=== PATIENT | female | born 1995 | race Asian ===

== ENCOUNTER 2017-03-23 16:17 | Emergency (ER) | payer OTHER ==
[2017-03-23 16:23] VITALS: TEMP 98; BMI 18.1
[2017-03-23] MEDS ORDERED: SODIUM CHLORIDE 1,000 ML IV STA (18:48)
[2017-03-23] MEDS ORDERED: ONDANSETRON 4 MG/2 ML VIAL IVPUSH ONE (18:49)
[2017-03-23] MEDS ORDERED: ONDANSETRON 4 MG/2 ML VIAL ONE (19:14)
[2017-03-23 19:56] LABS: ALBUMIN 3.7 g/dl (3.4-5.0); ALK PHOS 60 U/L (45-117); ANION GAP 8 (8-16); CALCIUM 8.9 mg/dL (8.5-10.1); CO2 24 mmol/L (21-32); CREATININE 0.4 mg/dL (0.55-1.02); GLUCOSE,RANDOM 103 mg/dL (74-106); SGOT/AST 19 U/L (15-37); SGPT/ALT 17 U/L (12-78); TOT PROT 7.2 g/dl (6.4-8.2)
[2017-03-23 20:04] LABS: BILIRUBIN,TOTAL < 0.1 mg/dL (0.2-1.0)
[2017-03-23 20:13] LABS: BASOPHIL 0.3 % (0-2.0); EOSINOPHIL 1.9 % (0-4.5); MCH 28.1 pg (25.7-33.7); MCHC 33.4 g/dl (32.0-36.0); MEAN CELL VOLUME 84.1 fl (80-96); MEAN PLT VOLUME 11.4 fl (7.5-11.1); NEUTROPHILS 72.4 % (42.8-82.8); PLATELET COUNT 222 K/MM3 (134-434); RDW 12.9 % (11.6-15.6); WHITE BLOOD COUNT 11.2 K/mm3 (4.0-10.0)
--- NOTE | 2017-03-23 20:25 | PDOC ---
History of Present Illness <Nemo Lenz - Last Filed: 03/23/17 20:23> - History of Present Illness Initial Comments: 03/23/17 20:55 Patient is a 21 year old female (11 weeks) with no significant medical hx who has been sent to the ED from gynecologists office for hyperemesis. Today the patient saw her HOG TENDER for hyperemesis that shes been having throughout her , and she was sent to the ED with a prescription for IV fluids. Denies any fevers, chills, vaginal bleeding, cramping, or vaginal discharge. HOG TENDER: Karen Méndez MD Surgical Hx: Right breast biopsy (benign) ; LNMP: 01/06/2017 Allergies: NKDA <Berkley Bishop - Last Filed: 03/23/17 20:57> - General Chief Complaint: Pain, Acute Stated Complaint: DEHYDRATION/11 WKS Time Seen by Provider: 03/23/17 18:47 Past History - Past Medical History Other medical history: PATIENT DENIES MEDICAL HX - Reproductive History Is Patient Now?: Yes - Psycho/Social/Smoking Cessation Hx Suicidal Ideation: No Smoking History: Never smoked Hx Alcohol Use: No Drug/Substance Use Hx: No <Nemo Lenz - Last Filed: 03/23/17 20:23> <Berkley Bishop - Last Filed: 03/23/17 20:57> - Past Medical History Allergies/Adverse Reactions: Allergies Allergy/AdvReac Type Severity Reaction Status Date / Time No Known Allergies Allergy Verified 03/23/17 16:23 Home Medications: Ambulatory Orders Cmb#95/Iron/FA/Dha [ + Dha Combo Pack] 1 each PO DAILY Review of Systems - Review of Systems Comments:: 03/23/17 20:55 CONSTITUTIONAL: Absent: fever, chills, diaphoresis, generalized weakness, malaise, loss of appetite HEENT: Absent: rhinorrhea, nasal congestion, throat pain, throat swelling, difficulty swallowing, mouth swelling, ear pain, eye pain, visual changes CARDIOVASCULAR: Absent: chest pain, syncope, palpitations, irregular heart rate, lightheadedness , peripheral edema RESPIRATORY: Absent: cough, shortness of breath, dyspnea with exertion, orthopnea, wheezing, stridor, hemoptysis GASTROINTESTINAL: Present: nausea, vomiting Absent: abdominal pain, abdominal distension, diarrhea, constipation, melena, hematochezia GENITOURINARY: Absent: dysuria, frequency, urgency, hesitancy, hematuria, flank pain, genital pain MUSCULOSKELETAL: Absent: myalgia, arthralgia, joint swelling SKIN: Absent: rash, itching, pallor HEMATOLOGIC/IMMUNOLOGIC: Absent: easy bleeding, easy bruising, lymphadenopathy, frequent infections ENDOCRINE: Absent: unexplained weight gain, unexplained weight loss, heat intolerance, cold intolerance NEUROLOGIC: Absent: headache, focal weakness or paresthesia, dizziness, unsteady gait, seizure, mental status changes, bladder or bowel incontinence. PSYCHIATRIC: Absent: anxiety, depression, suicidal or homicidal ideation, hallucinations <Berkley Bishop - Last Filed: 03/23/17 20:57> *Physical Exam - Vital Signs Last Vital Signs Temp Pulse Resp BP Pulse Ox 98.0 F 94 H 16 102/65 100 03/23/17 16:19 03/23/17 16:19 03/23/17 16:19 03/23/17 16:19 03/23/17 16:19 <Nemo Lenz - Last Filed: 03/23/17 20:23> - Vital Signs Last Vital Signs Temp Pulse Resp BP Pulse Ox 98.0 F 75 18 134/64 98 03/23/17 16:19 03/23/17 20:26 03/23/17 20:26 03/23/17 20:26 03/23/17 20:26 - Physical Exam Comments: 03/23/17 20:56 GENERAL: Well developed, well nourished. Awake and alert. No acute distress. HEENT: Normocephalic, atraumatic. PERRLA, EOMI. No conjunctival pallor. Sclera are non- icteric. Moist mucous membranes. Oropharynx is clear. NECK: Supple. Full ROM. No JVD. Carotid pulses 2+ and symmetric, without bruits. No thyromegaly. No lymphadenopathy. CARDIOVASCULAR: Regular rate and rhythm. No murmurs, rubs, or gallops. Distal pulses are 2+ and symmetric. PULMONARY: No evidence of respiratory distress. Lungs clear to auscultation bilaterally. No wheezing, rales or rhonchi. ABDOMINAL: Soft. Non-tender. Non-distended. No rebound or guarding. No organomegaly. Normoactive bowel sounds. MUSCULOSKELETAL: Normal range of motion at all joints. No bony deformities or tenderness. No CVA tenderness. EXTREMITIES: No cyanosis. No clubbing. No edema. No calf tenderness. SKIN: Warm and dry. Normal capillary refill. No rashes. No jaundice. NEUROLOGICAL: Alert, awake, appropriate. Cranial nerves 2-12 intact. Normal speech. Gait is normal without ataxia. PSYCHIATRIC: Cooperative. Good eye contact. Appropriate mood and affect. <Berkley Bishop - Last Filed: 03/23/17 20:57> ED Treatment Course - LABORATORY CBC & Chemistry Diagram: 03/23/17 19:00 03/23/17 19:00 - ADDITIONAL ORDERS Additional order review: Laboratory Results 03/23/17 19:00 Sodium 140 Potassium 3.9 Chloride 108 H Carbon Dioxide 24 Anion Gap 8 BUN 12 Creatinine 0.4 L Creat Clearance w eGFR > 60 Random Glucose 103 Calcium 8.9 Total Bilirubin < 0.1 L AST 19 ALT 17 Alkaline Phosphatase 60 Total Protein 7.2 Albumin 3.7 03/23/17 19:00 RBC 4.07 MCV 84.1 MCHC 33.4 RDW 12.9 MPV 11.4 H Neutrophils % 72.4 Lymphocytes % 19.6 Monocytes % 5.8 Eosinophils % 1.9 Basophils % 0.3 - Medications Given in the ED: ED Medications Discontinued Medications Generic Name Dose Route Start Last Admin Trade Name Freq PRN Reason Stop Dose Admin Sodium Chloride 1,000 mls @ 1,000 mls/hr 03/23/17 18:48 03/23/17 19:19 Normal Saline - IV 03/23/17 19:47 1,000 mls/hr ASDIR STA Administration Ondansetron HCl 4 mg 03/23/17 18:49 03/23/17 19:19 Zofran Injection IVPUSH 03/23/17 18:50 4 mg ONCE ONE Administration <Nemo Lenz - Last Filed: 03/23/17 20:23> - LABORATORY CBC & Chemistry Diagram: 03/23/17 19:00 03/23/17 19:00 - ADDITIONAL ORDERS Additional order review: Laboratory Results 03/23/17 19:00 Sodium 140 Potassium 3.9 Chloride 108 H Carbon Dioxide 24 Anion Gap 8 BUN 12 Creatinine 0.4 L Creat Clearance w eGFR > 60 Random Glucose 103 Calcium 8.9 Total Bilirubin < 0.1 L AST 19 ALT 17 Alkaline Phosphatase 60 Total Protein 7.2 Albumin 3.7 03/23/17 19:00 RBC 4.07 MCV 84.1 MCHC 33.4 RDW 12.9 MPV 11.4 H Neutrophils % 72.4 Lymphocytes % 19.6 Monocytes % 5.8 Eosinophils % 1.9 Basophils % 0.3 - Medications Given in the ED: ED Medications Discontinued Medications Generic Name Dose Route Start Last Admin Trade Name Juanito PRN Reason Stop Dose Admin Sodium Chloride 1,000 mls @ 1,000 mls/hr 03/23/17 18:48 03/23/17 19:19 Normal Saline - IV 03/23/17 19:47 1,000 mls/hr ASDIR STA Administration Ondansetron HCl 4 mg 03/23/17 18:49 03/23/17 19:19 Zofran Injection IVPUSH 03/23/17 18:50 4 mg ONCE ONE Administration <Berkley Bishop - Last Filed: 03/23/17 20:57> *DC/Admit/Observation/Transfer <Nemo Lenz - Last Filed: 03/23/17 20:23> - Attestations Scribe Attestion: 03/23/17 20:57 Documentation prepared by Berkley Bishop, acting as medical technologist microbiology for Nemo Lenz MD. <Bekrley Bishop - Last Filed: 03/23/17 20:57> Diagnosis at time of Disposition: Hyperemesis arising during - Discharge Dispostion Disposition: HOME Condition at time of disposition: Stable - Referrals Referrals: Em Hubbard MD [Primary Care Provider] - Karen Méndez MD [Staff Physician] - - Patient Instructions Printed Discharge Instructions: DI for Hyperemesis Gravidarum Additional Instructions: please follow up with your engineering and scientific programmer
[2017-03-23 20:26] VITALS: BP 134/64; PULSE 75
== END 2017-03-23 20:26 | disposition home or self-care (01) ==
LOC: JER 16:17
PROC: 3E033GC Introduction of Other Therapeutic Substance into Peripheral Vein, Percutaneous Approach (ICD-10-PCS; principal; 2017-03-23)
DX: O21.1 Hyperemesis gravidarum with metabolic disturbance (principal); Z3A.11 11 weeks gestation of pregnancy
CPT/HCPCS: 36415; 80053; 85025; 99283-25

== ENCOUNTER 2017-10-01 04:50 | Inpatient (IN) | payer OTHER ==
[2017-10-01] MEDS: ELECTROLYTE-148 SOLN 1,000 ML IV SCH ×2 (06:00→17:55)
[2017-10-01] MEDS ORDERED: AMPICILLIN - 2 GM in SODIUM CHLORIDE 100 ML IVPB ONE (06:15)
[2017-10-01 06:28] LABS: BASO % 0.2 % (0-2.0); EOS % 1.5 % (0-4.5); HEMATOCRIT 36.4 % (32.4-45.2); HEMOGLOBIN 11.9 GM/dL (10.7-15.3); LYMPH % 20.3 % (8-40); MCH 27.5 pg (25.7-33.7); MCHC 32.8 g/dl (32.0-36.0); MEAN CELL VOLUME 83.8 fl (80-96); MONO % 8.1 % (3.8-10.2); NEUT % 69.9 % (42.8-82.8); PLATELET COUNT 183 K/MM3 (134-434); RBC 4.35 M/mm3 (3.60-5.2); RDW 18.6 % (11.6-15.6); WHITE BLOOD COUNT 11.1 K/mm3 (4.0-10.0)
[2017-10-01 06:39] VITALS: BMI 23.1
[2017-10-01 06:49] LABS: INR 0.95 (0.82-1.09); PROTHROMBIN TIME (PATIENT) 10.7 SEC (9.98-11.88)
[2017-10-01 06:51] LABS: ACTIVATED PTT 31.5 SECONDS (26.9-34.4)
[2017-10-01 06:55] LABS: ANION GAP 13 (8-16); BLOOD UREA NITROGEN 8 mg/dL (7-18); CALCIUM 9.4 mg/dL (8.5-10.1); CHLORIDE 105 mmol/L (98-107); CO2 23 mmol/L (21-32); CREATININE 0.3 mg/dL (0.55-1.02); GLUCOSE,RANDOM 80 mg/dL (74-106); POTASSIUM 4.2 mmol/L (3.5-5.1); SODIUM 141 mmol/L (136-145)
[2017-10-01] MEDS ORDERED: TUBERCULIN PPD 5 TU/0.1ML SYRINGE (IN PATIENT USE ONLY) ID ONE (09:00)
[2017-10-01] MEDS ORDERED: AMPICILLIN - 1 GM in SODIUM CHLORIDE 100 ML IVPB SCH (10:15)
--- NOTE | 2017-10-01 10:47 | HP ---
Past Medical History - Primary Care Physician PCP:: Karen Méndez - Admission Chief Complaint: Bloody show History of Present Illness: 21 yo EDC 10/13/17 EGA 38.1 week with c/o of heavy bloody show and contractions + AFM -HOWELL +pain History Source: Patient Limitations to Obtaining History: No Limitations - Past Medical History ...: 1 ...Para: 0 ...Term: 0 ...: 0 ...Spon : 0 ...Induced : 0 ...Multiple Gestation: 0 ...LMP: 01/06/17 ... Weeks Gestation by Dates: 38.1 ...EDC by Dates: 10/13/17 ...EDC by Sono: 10/13/17 - Past Surgical History Past Surgical History: Yes: None Hx Myomectomy: No Hx Transabdominal Cerclage: No - Smoking History Smoking history: Never smoked Have you smoked in the past 12 months: No - Alcohol/Substance Use Hx Alcohol Use: No - Social History Usual Living Arrangement: Yes: With Spouse History of Recent Travel: No Home Medications - Allergies Allergies/Adverse Reactions: Allergies Allergy/AdvReac Type Severity Reaction Status Date / Time No Known Allergies Allergy Verified 03/23/17 16:23 - Home Medications Home Medications: Ambulatory Orders 95/Iron Fum/Folic/Dha [ + Dha Combo Pack] 1 each PO DAILY 03/23 Ferrous Sulfate [Feosol] 325 mg PO DAILY 10/01/17 Physical Exam - Maternity Vital Signs: Vital Signs Temperature 98.7 F 10/01/17 10:00 Pulse Rate 108 H 10/01/17 10:00 Respiratory Rate 20 10/01/17 10:00 Blood Pressure 98/67 10/01/17 10:00 O2 Sat by Pulse Oximetry (%) Constitutional: Yes: Well Nourished, No Distress Neck: Yes: WNL Cardiovascular: Yes: WNL Lungs: Clear to auscultation - Abdominal Exam/OB Fundal Height: 38 Number of Fetuses: Single Contractions: Yes Regularity: Irritability Intensity: Unaware Monitor Mode: External Heart Rate (range): 140 Heart Rate Location: [facility] Category: I Accelerations: Non-Uniform - Vaginal Exam/OB Speculum Exam: Yes Dilatation (cm): 1 Effacement (%): 50 Amniotic Membrane Status: Intact Presentation: Vertex/Position Station: 0 - Labs Lab Results: CBC, BMP 10/01/17 06:05 10/01/17 06:05 Problem List - Problems (1) with third trimester bleeding Code(s): O46.93 - ANTEPARTUM HEMORRHAGE, UNSPECIFIED, THIRD TRIMESTER Assessment/Plan IUP at 38.1 week Abnormal vaginal bleeding Heavy bloody show Cat 1 Prodromal Labor Plan ADmit due to bleeding usg/BPP with MFM send to floor for observation
[2017-10-02] MEDS: ELECTROLYTE-148 SOLN 1,000 ML IV SCH ×2 (08:00→16:00)
--- NOTE | 2017-10-02 15:29 | PN ---
Progress Note (SOAP) - Subjective Chief Complaint: Pt with mild spotting - Current Medications Current Medications: Active Medications Diphtheria/Tetanus/Acell Pertussis (Boostrix -) 0.5 ml IM .ONCE ONE Stop: 10/02/17 16:01 Parenteral Electrolytes (Plasma-Lyte 148 -) 1,000 mls @ 125 mls/hr IV ASDIR ZOILA Last Admin: 10/02/17 08:00 Dose: 125 mls/hr Influenza Virus Vaccine Quadrival (Fluarix Quad [id number] Syringe) 60 mcg IM .ONCE ONE Stop: 10/02/17 16:01 - Objective Vital Signs: Vital Signs Temperature 98.7 F 10/02/17 13:30 Pulse Rate 98 H 10/02/17 13:30 Respiratory Rate 20 10/02/17 13:30 Blood Pressure 126/62 10/02/17 13:30 O2 Sat by Pulse Oximetry (%) Constitutional: Yes: Well Nourished, No Distress Cardiovascular: Yes: WNL Respiratory: Yes: WNL Gastrointestinal: Yes: WNL, Normal Bowel Sounds, Soft (38 cm gravid) Breast(s): Yes: WNL Musculoskeletal: Yes: WNL Extremities: Yes: WNL Edema: No Neurological: Yes: WNL, Alert, Oriented Labs Lab Results: CBC, BMP 10/01/17 06:05 10/01/17 06:05 Problem List - Problems (1) with third trimester bleeding Code(s): O46.93 - ANTEPARTUM HEMORRHAGE, UNSPECIFIED, THIRD TRIMESTER Assessment/Plan IUP at 38.2 week continued vaginal bleeding Plan Bed rest continue to observe DC home in am if stable
[2017-10-02] MEDS ORDERED: FLU VACC QS2017-18 36MOS UP/PF 60 MCG/0.5 ML SYRINGE IM ONE (16:00)
[2017-10-02] MEDS ORDERED: DIPHTH,PERTUSS(ACELL),TET 0.5 ML DISP.SYRIN IM ONE (16:00)
[2017-10-02] MEDS ORDERED: BUTORPHANOL TARTRATE 1 MG/ML VIAL ONE ×2 (22:23)
[2017-10-02] MEDS ORDERED: PROMETHAZINE HCL 25 MG/1 ML VIAL ONE (22:23)
[2017-10-02] MEDS ORDERED: BUTORPHANOL TARTRATE 1 MG/ML VIAL IVPUSH ONE (22:25)
[2017-10-02] MEDS ORDERED: PROMETHAZINE HCL 25 MG/1 ML VIAL IVPUSH ONE (22:25)
--- NOTE | 2017-10-02 22:33 | PN ---
Ante-Partal Exam - Subjective Vital Signs: Vital Signs Temperature 97.8 F 10/02/17 21:13 Pulse Rate 112 H 10/02/17 21:13 Respiratory Rate 18 10/02/17 21:13 Blood Pressure 139/74 10/02/17 21:13 O2 Sat by Pulse Oximetry (%) Bleeding: Yes Bleeding Description: Mild Headache: No Visual changes: No Right upper quadrant pain: No Pain (scale 1-10): 3 - Contractions Contractions: Yes Regularity: Regular Intensity: Moderate Monitor Mode: External - Exam during Labor Heart Rate: 149 Variability: Moderate Heart Rate Location: [facility] (patient is requesting pain management stadol 2 and phenergan is given with good results.)
[2017-10-03] MEDS ORDERED: ELECTROLYTE-148 SOLN 1,000 ML IV ONE (00:30)
[2017-10-03] MEDS ORDERED: FENTANYL/BUPIVACAINE/NS/PF - PCEA - 50 ML DISP.SYRIN EP ONE ×2 (01:58→06:57)
[2017-10-03] MEDS ORDERED: NALOXONE HCL 0.4 MG/ML VIAL IVPUSH PRN (01:58)
[2017-10-03] MEDS ORDERED: FENTANYL/BUPIVACAINE/NS/PF - PCEA - 50 ML DISP.SYRIN EP SCH (02:00)
[2017-10-03] MEDS: ELECTROLYTE-148 SOLN 1,000 ML IV SCH (06:30)
[2017-10-03] MEDS ORDERED: OXYTOCIN 20 UNITS in 0.9% NS 20 UNIT/1,000 ML INFUS.BAG IV ONE (07:52)
[2017-10-03] MEDS ORDERED: LIDOCAINE HCL 1% PRESERVATIVE FREE - 30ML VIAL ONE (07:52)
--- NOTE | 2017-10-03 07:54 | PN ---
Ante-Partal Exam - Subjective Vital Signs: Vital Signs Temperature 98.8 F 10/03/17 06:00 Pulse Rate 104 H 10/03/17 06:45 Respiratory Rate 20 10/03/17 06:45 Blood Pressure 101/73 10/03/17 06:45 O2 Sat by Pulse Oximetry (%) 97 10/03/17 06:45 Bleeding: No Headache: No Visual changes: No Right upper quadrant pain: No Pain (scale 1-10): 2 - Contractions Contractions: Yes Regularity: Regular Intensity: Mod/Strong Monitor Mode: External - Exam during Labor Heart Rate: 150 Variability: Moderate Heart Rate Location: [facility] Category: I Monitor Accelerations: Present Monitor Decelerations: None Exam: Vaginal Dilatation (cm): 9cm Amniotic Membrane Status: Ruptured Amniotic Fluid: Clear Presentation: Vertex Station: 0 - Intrapartum Hemorrhage Risk Medium Risk Factors: None Risk Score: 0 Risk Level: Low Risk - Assessment/Plan Assessment/Plan: continue labor management,
--- NOTE | 2017-10-03 08:40 | PN ---
Ante-Partal Exam - Subjective Subjective: Pt with pressure Vital Signs: Vital Signs Temperature 98.8 F 10/03/17 06:00 Pulse Rate 125 H 10/03/17 08:00 Respiratory Rate 18 10/03/17 08:00 Blood Pressure 110/63 10/03/17 08:00 O2 Sat by Pulse Oximetry (%) 96 10/03/17 08:00 Bleeding: No Headache: No Visual changes: No Right upper quadrant pain: No - Contractions Contractions: Yes Regularity: Regular Intensity: Moderate Monitor Mode: External - Exam during Labor Variability: Moderate Heart Rate Location: [facility] Category: I Monitor Decelerations: None Exam: Vaginal Dilatation (cm): 10 Effacement (%): 100 Amniotic Membrane Status: Ruptured Presentation: Vertex Station: +1 - Intrapartum Hemorrhage Risk Risk Score: 0 Risk Level: Low Risk - Assessment/Plan Assessment/Plan: IUP at 38.3 week Labor 2nd stage of labor Plan anticipate vaginal delivery
[2017-10-03] MEDS ORDERED: METHYLERGONOVINE MALEATE 0.2 MG/1 ML AMP IM PRN (09:40)
[2017-10-03] MEDS ORDERED: BENZOCAINE 28 GM HEMORRHOIDAL OINTMENT PR PRN (09:40)
[2017-10-03] MEDS ORDERED: BENZOCAINE 20% 57 GM BOTTLE TP PRN (09:40)
[2017-10-03] MEDS ORDERED: WITCH HAZEL 50% (TUCKS) 40 PAD/JAR PAD TP PRN (09:40)
[2017-10-03] MEDS ORDERED: BISACODYL 10 MG SUPP.RECT RC PRN (09:40)
--- NOTE | 2017-10-03 09:40 | PN ---
Delivery - Delivery Vaginal Delivery: Vacuum Assist (consent obtained) Type of Anesthesia: Local, Epidural Episiotomy/Laceration: Right Mediolateral EBL (cc): 500 (shoulders delivered without complaints ) Delivery, Single - Stages of Labor Placenta: Yes: Spontaneous - Condition of Gender: Male Position: OA - Feeding Plan Initial Plan: Elected not to breastfeed exclusively throughout hospitalization
[2017-10-03] MEDS ORDERED: OXYTOCIN 20 UNITS in 0.9% NS 20 UNIT/1,000 ML INFUS.BAG IV SCH (09:45)
[2017-10-03] MEDS ORDERED: oxyCODONE HCL 5 MG TABLET ONE (09:47)
--- NOTE | 2017-10-03 09:47 | PROC ---
Obstetrical Vaccum Device - Doc. Following Use of Vaccum Device Indications for use: Maternal Exhaustion Risks and Benefits Explained: Yes Consent on Chart: Yes Station: 2 Position: OA Caput: No Proper placement of cup confirmed: No Reduction of pressure between contractions: Yes Appearance of head on delivery: Normal Full Service Vending Driver present during vacuum extraction: No Full Service Vending Driver & nursery staff notified of vacuum extraction: Yes
[2017-10-03] MEDS ORDERED: ACETAMINOPHEN 325 MG TABLET (FP) PO PRN (09:52)
[2017-10-03] MEDS ORDERED: oxyCODONE HCL 5 MG TABLET PO PRN (09:52)
[2017-10-03 10:09] LABS: VENOUS PC02 39.2 mmHg (38-52); VENOUS PH 7.38 (7.32-7.42)
[2017-10-03 10:10] LABS: VENOUS PO2 33.6 mmHg (28-48)
[2017-10-03 10:12] LABS: ARTERIAL BLD GAS O2 SATURATION 64.5 % (90-98.9); ARTERIAL BLOOD GAS PO2 28.7 mmHg (80-100); ARTERIAL BLOOD GAS pH 7.34 (7.35-7.45)
[2017-10-03 10:13] LABS: ARTERIAL BLOOD GAS BASE EXCESS -2.5 meq/l (-2-2)
[2017-10-03] MEDS: IBUPROFEN 600 MG TABLET (FP) PO PRN (17:30)
[2017-10-03] MEDS: ACETAMINOPHEN 325 MG TABLET (FP) PO PRN (17:30)
[2017-10-04] MEDS: ACETAMINOPHEN 325 MG TABLET (FP) PO PRN (05:48)
[2017-10-04] MEDS: IBUPROFEN 600 MG TABLET (FP) PO PRN (05:49)
[2017-10-04 08:51] LABS: BASO % 0.1 % (0-2.0); EOS % 1.3 % (0-4.5); HEMATOCRIT 28.8 % (32.4-45.2); HEMOGLOBIN 9.2 GM/dL (10.7-15.3); LYMPH % 12.4 % (8-40); MCH 27.3 pg (25.7-33.7); MEAN CELL VOLUME 85.1 fl (80-96); MONO % 5.9 % (3.8-10.2); NEUT % 80.3 % (42.8-82.8); PLATELET COUNT 159 K/MM3 (134-434); RBC 3.38 M/mm3 (3.60-5.2); RDW 18.6 % (11.6-15.6); WHITE BLOOD COUNT 15.9 K/mm3 (4.0-10.0)
--- NOTE | 2017-10-04 08:55 | PN ---
Progress Note (SOAP) - Subjective Chief Complaint: Pt doing well fond sitting in chair with baby - Current Medications Current Medications: Active Medications Acetaminophen (Tylenol -) 650 mg PO Q4H PRN PRN Reason: FEVER Last Admin: 10/04/17 05:48 Dose: 650 mg Acetaminophen (Tylenol -) 325 mg PO Q4H PRN Stop: 10/06/17 09:51 Last Admin: 10/03/17 09:50 Dose: 325 mg Benzocaine (Americaine 20% Celina -) 1 spray TP PRN PRN PRN Reason: PAIN Last Admin: 10/03/17 17:29 Dose: 1 spray Benzocaine (Americaine Ointment -) 1 applic AL PRN PRN PRN Reason: PAIN Bisacodyl (Dulcolax Suppository -) 10 mg RC PRN PRN PRN Reason: CONSTIPATION Diphtheria/Tetanus/Acell Pertussis (Boostrix -) 0.5 ml IM .ONCE ONE Stop: 10/04/17 10:01 Ibuprofen (Motrin -) 600 mg PO Q4H PRN PRN Reason: PAIN Last Admin: 10/04/17 05:49 Dose: 600 mg Influenza Virus Vaccine Quadrival (Fluarix Quad [id number] Syringe) 60 mcg IM .ONCE ONE Stop: 10/04/17 10:01 Methylergonovine Maleate (Methergine Injection -) 0.2 mg IM Q4H PRN PRN Reason: EXCESSIVE BLEEDING Oxycodone HCl (Roxicodone -) 5 mg PO Q4H PRN Last Admin: 10/03/17 09:50 Dose: 5 mg Witch Julianna/Glycerin (Tucks Pads -) 1 pad TP PRN PRN PRN Reason: PAIN - Objective Vital Signs: Vital Signs Temperature 98.2 F 10/04/17 05:49 Pulse Rate 94 H 10/04/17 05:49 Respiratory Rate 18 10/04/17 05:49 Blood Pressure 112/66 10/04/17 05:49 O2 Sat by Pulse Oximetry (%) 99 10/03/17 10:30 Constitutional: Yes: Well Nourished, No Distress Gastrointestinal: Yes: WNL, Normal Bowel Sounds ....Post : Yes: Uterus firm, Uterus non-tender Musculoskeletal: Yes: WNL Extremities: Yes: WNL Edema: No Wound/Incision: Yes: Well Approximated Neurological: Yes: WNL, Alert, Oriented Labs Lab Results: CBC, BMP 10/01/17 06:05 Problem List - Problems (1) with third trimester bleeding Code(s): O46.93 - ANTEPARTUM HEMORRHAGE, UNSPECIFIED, THIRD TRIMESTER Assessment/Plan SP Plan DC home in am
[2017-10-04] MEDS ORDERED: FLU VACC QS2017-18 36MOS UP/PF 60 MCG/0.5 ML SYRINGE IM ONE (10:00)
[2017-10-04] MEDS ORDERED: DIPHTH,PERTUSS(ACELL),TET 0.5 ML DISP.SYRIN IM ONE (10:00)
[2017-10-05 08:31] VITALS: BP 107/70; PULSE 85; TEMP 98.2
--- NOTE | 2017-10-05 12:26 | DS ---
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 Vital Signs: Vital Signs Temperature 98.2 F 10/05/17 07:45 Pulse Rate 85 10/05/17 07:45 Respiratory Rate 20 10/05/17 07:45 Blood Pressure 107/70 10/05/17 07:45 O2 Sat by Pulse Oximetry (%) 99 10/03/17 10:30 Constitutional: Yes: Well Nourished, No Distress Cardiovascular: Yes: WNL Respiratory: Yes: WNL Gastrointestinal: Yes: WNL, Normal Bowel Sounds Pelvis: Yes: Hernia Right ....Post : Yes: Uterus firm, Uterus non-tender Breast(s): Yes: WNL Musculoskeletal: Yes: WNL Extremities: Yes: WNL Edema: No Labs: CBC, BMP 10/04/17 08:00 10/01/17 06:05 Delivery - Delivery Vaginal Delivery: Vacuum Assist (consent obtained) Type of Anesthesia: Local, Epidural Episiotomy/Laceration: Right Mediolateral EBL (cc): 500 (shoulders delivered without complaints ) Delivery, Single - Stages of Labor Date 1st Stage Initiatied: 10/02/17 Time 1st Stage Initiated: 23:00 Date 2nd Stage Initiated: 10/03/17 Time 2nd Stage Initiated: 08:28 Date of Delivery: 10/03/17 Time of Delivery: 09:25 Time Placenta Delivered: 09:28 Placenta: Yes: Spontaneous - Condition of Infant Box Attacher/Lineworker Present: No Gender: Male Weight: 7 lb 5 oz Position: OA Total Hours ROM (Hrs/Mins): 1hr - 1 Minute Total Score: 9 5 Minutes Total Score: 9 - Feeding Plan Initial Plan: Elected not to breastfeed exclusively throughout hospitalization Discharge Summary Reason For Visit: ANTEPARTUM VAGINAL BLEEDING Current Active Problems with third trimester bleeding (Acute) Procedures: Principal: Vacuum Delivery Condition: Good - Instructions Diet, Activity, Other Instructions: Physical activity Resume your normal everyday activity as tolerated no heavy lifting or exercise until seen by your surgeon. You may walk unlimited maida of and climb stairs. You may resume driving the car when you feel safe and comfortable behind the wheel. No sexual activity as instructed. Wound care If you have a bandage, leave it on, and keep dry for 48-72 hours. After that time discard the outer bandage. If they are tapes on the skin under the out of bandage leave them in place. They will peel off in the next 7 to 10 days. Do Not Peel them off. You may shower the day after surgery. If there are tapes present on the skin, you may shower over them. Diet There are no dietary restrictions. Eat healthy, high-fiber foods. Drink 6 to 8 glasses of liquid each day. This will assist in keeping your bowels are regular. Pain management You may take Tylenol or acetaminophen or Ibuprofen (for example, Motrin, Advil etc.) from my pain prescription medication is ordered should be taken as prescribed for moderate to severe pain. Call MD for any of the following: Severe pain not relieved by medication Fever of 101 or higher Excessive bleeding or drainage on dressing Inability to urinate Call Dr. Méndez and make appt. to be seen in 4 weeks. Referrals: Karen Méndez MD [Staff Physician] - Disposition: HOME - Home Medications Comprehensive Discharge Medication List: Ambulatory Orders 95/Iron Fum/Folic/Dha [ + Dha Combo Pack] 1 each PO DAILY 03/23 Ferrous Sulfate [Feosol] 325 mg PO DAILY 10/01/17 Ibuprofen [Motrin -] 600 mg PO QID #28 tablet 10/03/17
== END 2017-10-05 13:00 | disposition home or self-care (01) | DRG 774 ==
LOC: JDEL 04:50 → JLDR 05:30 → J3W 14:20 → JLDR 10-02 21:20 → J3W 10-03 11:36
PROVIDERS: ADMIT Obstetrics & Gynecology; ATTEND Obstetrics & Gynecology
PROC: 10D07Z6 Extraction of Products of Conception, Vacuum, Via Natural or Artificial Opening (ICD-10-PCS; principal; 2017-10-03)
PROC: 0W8NXZZ Division of Female Perineum, External Approach (ICD-10-PCS; 2017-10-03)
DX: O46.93 Antepartum hemorrhage, unspecified, third trimester (principal); Z3A.38 38 weeks gestation of pregnancy; Z37.0 Single live birth
CPT/HCPCS: 36415; 36600; 59409; 80048; 82803; 85025; 85610; 85730; 86593; 86850; 86900; 86901; 90686; 90715

== ENCOUNTER 2018-06-22 12:13 | Emergency (ER) | payer OTHER ==
[2018-06-22 12:39] VITALS: BP 104/66; PULSE 99; TEMP 97.9; BMI 18.3
[2018-06-22] MEDS ORDERED: TRIAMCINOLONE ACET 40MG/1ML VIAL IM ONE (13:03)
[2018-06-22] MEDS ORDERED: TRIAMCINOLONE ACET 40MG/1ML VIAL ONE (13:08)
--- NOTE | 2018-06-22 13:10 | PDOC ---
History of Present Illness - General Chief Complaint: Rash Stated Complaint: RASH Time Seen by Provider: 06/22/18 12:55 History Source: Patient Exam Limitations: No Limitations - History of Present Illness Initial Comments: 06/22/18 13:04 22 yr female with c/o rash and itching all over body for 2 days unknown cause no fever no chills. no meds. Past History - Past Medical History Allergies/Adverse Reactions: Allergies Allergy/AdvReac Type Severity Reaction Status Date / Time No Known Allergies Allergy Verified 06/22/18 12:36 Home Medications: Ambulatory Orders NK [No Known Home Medication] 06/22/18 Asthma: No Cancer: No Cardiac Disorders: No COPD: No Diabetes: No HTN: No Seizures: No Thyroid Disease: No - Suicide/Smoking/Psychosocial Hx Smoking History: Never smoked Have you smoked in the past 12 months: No Hx Alcohol Use: No Drug/Substance Use Hx: No Hx Substance Use Treatment: No Review of Systems - Review of Systems Able to Perform ROS?: Yes Is the patient limited Citizen Of [place] proficient: No Constitutional: No: Symptoms Reported HEENTM: No: Symptoms Reported Respiratory: No: Symptoms reported Cardiac (ROS): No: Symptoms Reported ABD/GI: No: Symptoms Reported : No: Symptoms Reported Musculoskeletal: No: Symptoms Reported Integumentary: Yes: Symptoms Reported Neurological: No: Symptoms reported *Physical Exam - Vital Signs Last Vital Signs Temp Pulse Resp BP Pulse Ox 97.9 F 99 H 16 104/66 99 06/22/18 12:37 06/22/18 12:37 06/22/18 12:37 06/22/18 12:37 06/22/18 12:37 - Physical Exam General Appearance: Yes: Nourished, Appropriately Dressed HEENT: positive: EOMI, TAVO, Normal ENT Inspection, TMs Normal, Pharynx Normal Neck: positive: Supple. negative: Tender Respiratory/Chest: positive: Lungs Clear, Normal Breath Sounds. negative: Chest Tender Cardiovascular: positive: Regular Rhythm, Regular Rate Gastrointestinal/Abdominal: positive: Normal Bowel Sounds, Soft Musculoskeletal: positive: Normal Inspection Extremity: positive: Normal Capillary Refill, Normal Inspection, Normal Range of Motion Integumentary: positive: Normal Color, Dry, Warm, Rash (erythematous patchyrash face, neck ears upper back ) Neurologic: positive: Fully Oriented, Alert, Normal Mood/Affect, Normal Response , Motor Strength 01/09 Medical Decision Making - Medical Decision Making 06/22/18 13:06 cc: itchy rash since yesterday no diff breathing or diff swallowing no meds taken at home will give kenalog dc home with benadryl *DC/Admit/Observation/Transfer Diagnosis at time of Disposition: Allergic reaction Qualifiers: Encounter type: initial encounter Qualified Code(s): T78.40XA - Allergy, unspecified, initial encounter - Discharge Dispostion Disposition: HOME Condition at time of disposition: Good - Referrals Referrals: Em Hubabrd MD [Primary Care Provider] - - Patient Instructions Additional Instructions: cool water to bathe, avoid hot water, use a calming soap such as aveeno oatmeal take benadryl 50mg at bedtime to help with itching during the day take a non drowsy antihistamine such as Claritin or Carlita follow with the parking manager as needed Return if any worsening symptoms - Post Discharge Activity
== END 2018-06-22 13:31 | disposition home or self-care (01) ==
LOC: JERFT 12:13
PROC: 3E0233Z Introduction of Anti-inflammatory into Muscle, Percutaneous Approach (ICD-10-PCS; principal; 2018-06-22)
DX: T78.40XA Allergy, unspecified, initial encounter (principal); X58.XXXA Exposure to other specified factors, initial encounter
CPT/HCPCS: 96372; 99281-25

== ENCOUNTER 2021-08-31 03:10 | Inpatient (IN) | payer OTHER ==
[2021-08-31] MEDS: ELECTROLYTE-148 SOLN 1,000 ML IV SCH ×2 (04:30→09:16)
[2021-08-31] MEDS ORDERED: BUTORPHANOL TARTRATE 1 MG/ML VIAL IVPB PRN (04:31)
[2021-08-31] MEDS ORDERED: PROMETHAZINE HCL 25 MG/1 ML VIAL ONE (05:14)
[2021-08-31] MEDS ORDERED: BUTORPHANOL TARTRATE 2 MG/ML VIAL ONE (05:14)
[2021-08-31] MEDS ORDERED: PROMETHAZINE HCL 25 MG/1 ML VIAL IVPUSH ONE (05:25)
[2021-08-31 05:44] VITALS: BMI 23.3
[2021-08-31 05:54] LABS: BASO % 0.2 % (0-2.0); EOS % 0.9 % (0-4.5); HEMATOCRIT 30.3 % (32.4-45.2); HEMOGLOBIN 9.6 GM/dL (10.7-15.3); LYMPH % 23.6 % (8-40); MCH 22.1 pg (25.7-33.7); MCHC 31.6 g/dl (32.0-36.0); MEAN CELL VOLUME 69.9 fl (80-96); MONO % 5.5 % (3.8-10.2); NEUT % 69.8 % (42.8-82.8); PLATELET COUNT 246 10^3/uL (134-434); RBC 4.33 M/mm3 (3.60-5.2); RDW 16.7 % (11.6-15.6); WHITE BLOOD COUNT 10.8 K/mm3 (4.0-10.0)
[2021-08-31 06:02] LABS: INR 0.97 (0.83-1.09); PROTHROMBIN TIME (PATIENT) 11.3 SEC (9.7-13.0)
[2021-08-31 06:04] LABS: ACTIVATED PTT 25.3 SECONDS (25.2-36.5)
[2021-08-31 06:20] LABS: BLOOD UREA NITROGEN 11.4 mg/dL (7-18); CALCIUM 9.2 mg/dL (8.5-10.1)
[2021-08-31 06:24] LABS: CREATININE 0.4 mg/dL (0.55-1.3)
[2021-08-31] MEDS ORDERED: OXYTOCIN 20 UNITS in 0.9% NS 20 UNIT/1,000 ML INFUS.BAG IV ONE ×2 (07:06→09:24)
[2021-08-31] MEDS ORDERED: LIDOCAINE HCL 1% PRESERVATIVE FREE - 30ML VIAL ONE (07:06)
[2021-08-31] MEDS: OXYTOCIN 20 UNITS in 0.9% NS 20 UNIT/1,000 ML INFUS.BAG IV SCH (07:44)
[2021-08-31 08:20] LABS: SYPHILIS W/ RPR CONF NON-REACTIVE (NONREACTIVE)
[2021-08-31 08:49] LABS: HIV INTERPRETATION NEGATIVE (NEGATIVE)
[2021-08-31] MEDS ORDERED: WITCH HAZEL 50% (TUCKS) 40 PAD/JAR PAD TP PRN (09:00)
[2021-08-31] MEDS ORDERED: ACETAMINOPHEN 325 MG TABLET (FP) PO PRN (09:00)
[2021-08-31] MEDS ORDERED: BENZOCAINE 20% 57 GM BOTTLE TP PRN (09:00)
[2021-08-31] MEDS ORDERED: METHYLERGONOVINE MALEATE 0.2 MG/1 ML AMP IM PRN (09:00)
[2021-08-31] MEDS ORDERED: BISACODYL 10 MG SUPP.RECT RC PRN (09:00)
[2021-08-31] MEDS ORDERED: BENZOCAINE 28 GM HEMORRHOIDAL OINTMENT TP PRN (09:00)
[2021-08-31] MEDS ORDERED: IBUPROFEN 600 MG TABLET (FP) PO ONE (09:01)
[2021-08-31] MEDS: IBUPROFEN 600 MG TABLET (FP) PO PRN ×3 (09:05→22:01)
[2021-08-31 09:53] LABS: CORD BASE EXCESS -5.8 mmol/L (0-2); CORD HCO3 22.8 mmHg (20-29); CORD PCO2 56.6 mmHg (30-78); CORD pH 7.223 (7.14-7.44)
[2021-08-31 09:56] LABS: CORD BASE EXCESS -4.8 mmol/L (0-2); CORD HCO3 20.7 mmHg (20-29); CORD PCO2 40.1 mmHg (30-78); CORD pH 7.331 (7.14-7.44)
[2021-08-31] MEDS: PRENATAL VITAMINS W/ FOLIC ACID TABLET (FP) PO SCH (12:54)
[2021-08-31] MEDS: FERROUS SO4 325 MG TABLET (FP) PO SCH (12:55)
[2021-09-01] MEDS ORDERED: SENNOSIDES/DOCUSATE COMBO (SENNA PLUS) TABLET (UD) PO PRN (09:00)
[2021-09-01] MEDS: PRENATAL VITAMINS W/ FOLIC ACID TABLET (FP) PO SCH (09:43)
[2021-09-01] MEDS: FERROUS SO4 325 MG TABLET (FP) PO SCH (09:44)
[2021-09-01] MEDS: IBUPROFEN 600 MG TABLET (FP) PO PRN ×2 (09:51→20:04)
[2021-09-01] MEDS ORDERED: DIPHTH,PERTUSS(ACELL),TET 0.5 ML DISP.SYRIN IM ONE (10:00)
[2021-09-01] MEDS ORDERED: FLU VACC QS2021-22(6MOS UP)/PF 60 MCG/0.5 ML SYRINGE IM ONE (10:00)
[2021-09-01] MEDS: OXYTOCIN 20 UNITS in 0.9% NS 20 UNIT/1,000 ML INFUS.BAG IV SCH (21:38)
[2021-09-01] MEDS: ELECTROLYTE-148 SOLN 1,000 ML IV SCH ×2 (21:38)
[2021-09-02 09:18] VITALS: BP 106/66; PULSE 76; TEMP 97.9
[2021-09-02] MEDS: PRENATAL VITAMINS W/ FOLIC ACID TABLET (FP) PO SCH (10:44)
[2021-09-02] MEDS: FERROUS SO4 325 MG TABLET (FP) PO SCH (10:44)
[2021-09-02] MEDS: IBUPROFEN 600 MG TABLET (FP) PO PRN (10:45)
[2021-09-02 13:24] LABS: BASO % 0.2 % (0-2.0); EOS % 2.6 % (0-4.5); HEMATOCRIT 26.3 % (32.4-45.2); HEMOGLOBIN 8.4 GM/dL (10.7-15.3); LYMPH % 11.4 % (8-40); MCH 22.3 pg (25.7-33.7); MCHC 31.8 g/dl (32.0-36.0); MEAN PLT VOLUME 10.3 fl (7.5-11.1); MONO % 6.1 % (3.8-10.2); NEUT % 79.7 % (42.8-82.8); PLATELET COUNT 233 10^3/uL (134-434); RBC 3.76 M/mm3 (3.60-5.2); RDW 16.6 % (11.6-15.6)
== END 2021-09-02 20:56 | disposition home or self-care (01) | DRG 560 ==
LOC: JDEL 03:10 → JLDR 04:20 → J3W 10:00
PROVIDERS: ADMIT Obstetrics & Gynecology; ATTEND Obstetrics & Gynecology
PROC: 10E0XZZ Delivery of Products of Conception, External Approach (ICD-10-PCS; principal; 2021-08-31)
DX: O69.81X0 Labor and delivery complicated by cord around neck, without compression, not applicable or unspecified (principal); Z3A.39 39 weeks gestation of pregnancy; Z37.0 Single live birth
CPT/HCPCS: 36415; 36600; 59409; 80048; 82803; 85025; 85610; 85730; 86780; 86850; 86900; 86901; 87389; 90686; 90715; C9803; G0008; U0003; U0005